=== PATIENT | female | born 1990 | race African-American/Black ===

== ENCOUNTER 2021-04-04 08:22 | Emergency (ER) | payer SELFPAY ==
[2021-04-04] MEDS ORDERED: Sterile Water 10 ML ONE (09:18)
[2021-04-04] MEDS ORDERED: Ziprasidone 20 MG VIAL ONE ×2 (09:18→11:44)
[2021-04-04 09:57] LABS: #Basophils 0.1 thou/uL (0.0-0.2); #Lymphocytes 1.2 thou/uL (1.20-3.40); #Monocytes 0.5 thou/uL (0.11-0.59); #Neutrophils 6.1 thou/uL (1.40-6.50); %Eosinophils 0.6 % (0.0-10.0); %Lymphocytes 14.9 % (21.0-51.0); %Monocytes 6.7 % (0.0-10.0); Hemoglobin 13.8 g/dL (12.0-16.0); Mean Corpuscular HGB CONC 33.2 g/dL (32.0-36.0); Mean Corpuscular Hemoglobin 29.6 pg (27.0-31.0); Mean Corpuscular Volume 89.3 fL (78.0-98.0); Mean Platelet Volume 7.3 fL (7.4-10.4); Platelet Count 203 thou/uL (130-400); RBC Distribution Width 11.6 % (11.5-14.5); Red Blood Cell (RBC) Count 4.64 mill/uL (4.20-5.40); White Blood Cell (WBC) Count 7.9 thou/uL (4.8-10.8)
[2021-04-04 10:10] LABS: Bilirubin Negative (Negative); Blood, Urine Negative (Negative); Clarity Clear (Clear); Glucose, Urine (Dipstick) Normal (Negative); Ketone, Urine Negative (Negative); Leukocyte Negative Leu/uL (Negative); Nitrite Negative (Negative); Protein, Urine (Dipstick) Negative (Neg-Trace); Specific Gravity, Urine 1.017 (1.002-1.036); Urobilinogen Normal mg/dL (Less than 2); pH, Urine 6.5 (5.0-9.0)
[2021-04-04 10:13] LABS: Acetaminophen Less than 6.0 mcg/mL (10.0-30.0); Alcohol Less than 10 mg/dL (Less than 10); Salicylate Less than 8.0 mg/dL (15.0-30.0)
[2021-04-04 10:13] LABS: Pregnancy Test - Urine (BHCG) Negative (Negative); Pregu Control Background? CLEAR/WHITE (CLR/WHITE); Pregu Control Bar Appear? YES (CONTROL BAR); Specific Gravity 1.017 (1.002-1.036)
[2021-04-04 10:15] LABS: ALT (SGPT) 16 U/L (8-55); AST (SGOT) 23 U/L (5-34); Albumin 4.2 g/dL (3.5-5.0); Alkaline Phosphatase 63 U/L (40-110); Anion Gap 13 mmol/L (10-20); BUN (Urea Nitrogen) 9 mg/dL (7.0-18.7); Bilirubin, Total 0.5 mg/dL (0.2-1.2); CK (CPK) 406 U/L (29-168); Calc. Creatinine Clearance 0 mL/min (70-130); Calcium 9.5 mg/dL (7.8-10.44); Carbon Dioxide 22 mmol/L (22-29); Chloride 107 mmol/L (98-107); Globulin 2.8 g/dL (2.4-3.5); Glucose 100 mg/dL (70-105); Potassium 3.2 mmol/L (3.5-5.1); Sodium 139 mmol/L (136-145)
[2021-04-04 10:41] LABS: Cocaine Metabolite Screen Detected (NotDetected); Methamphetamine Detected (NotDetected); Phencyclidine (PCP) Detected (NotDetected)
[2021-04-04 10:42] LABS: Amphetamine Detected (NotDetected); Barbiturates Screen Not Detected (NotDetected); Benzodiazepine Screen Not Detected (NotDetected); Medtox Control Line Valid? VALID (VALID); Medtox Reader # READER 1; Methadone Not Detected (NotDetected); Opiate Screen Not Detected (NotDetected); Oxycodone Screen Not Detected (NotDetected); THC/Cannabinoid Screen Not Detected (NotDetected); Tricyclic Screen Not Detected (NotDetected)
[2021-04-04] MEDS ORDERED: Lorazepam 1 MG TAB ONE (18:35)
[2021-04-04 19:36] LABS: SARS-CoV-2 NAA Rapid Test Not Detected (NotDetected)
== END 2021-04-04 19:45 ==
LOC: ERS 08:22
DX: F29 Unspecified psychosis not due to a substance or known physiological condition (principal); F19.10 Other psychoactive substance abuse, uncomplicated; Z20.822 Contact with and (suspected) exposure to COVID-19; F16.10 Hallucinogen abuse, uncomplicated; F14.10 Cocaine abuse, uncomplicated; F15.10 Other stimulant abuse, uncomplicated
CPT/HCPCS: 36415; 80053; 80306; 80307; 81003; 81025; 82550; 84443; 85025; 93005; 96372; 99285; J3486; U0002

== ENCOUNTER 2021-05-05 20:41 | Inpatient (IN) | payer OTHER, SELFPAY ==
[~2021-05-05 20:41] MED LIST: Iopamidol-370 76% 500 ML 1 ML ONE
[2021-05-05] MEDS ORDERED: Boostrix 0.5 ML (Tdap) VIAL ONE ×2 (20:46→21:21)
[2021-05-05 21:01] LABS: #Eosinphils 0.1 thou/uL (0.0-0.7); #Lymphocytes 1.3 thou/uL (1.20-3.40); #Monocytes 0.5 thou/uL (0.11-0.59); #Neutrophils 5.1 thou/uL (1.40-6.50); %Basophils 0.7 % (0.0-1.0); %Eosinophils 0.8 % (0.0-10.0); %Lymphocytes 19.1 % (21.0-51.0); %Monocytes 6.4 % (0.0-10.0); Hemoglobin 11.4 g/dL (12.0-16.0); Mean Corpuscular HGB CONC 34.4 g/dL (32.0-36.0); Mean Corpuscular Hemoglobin 30.5 pg (27.0-31.0); Mean Corpuscular Volume 88.9 fL (78.0-98.0); Mean Platelet Volume 6.8 fL (7.4-10.4); Platelet Count 199 thou/uL (130-400); RBC Distribution Width 12.2 % (11.5-14.5); Red Blood Cell (RBC) Count 3.73 mill/uL (4.20-5.40)
[2021-05-05] MEDS ORDERED: Tranexamic Acid 1,000 MG/10 ML VIAL ONE (21:12)
[2021-05-05 21:15] LABS: ALT (SGPT) 9 U/L (8-55); AST (SGOT) 16 U/L (5-34); Acetaminophen Less than 6.0 mcg/mL (10.0-30.0); Albumin 2.3 g/dL (3.5-5.0); Alcohol 16 mg/dL (Less than 10); Alkaline Phosphatase 28 U/L (40-110); Anion Gap 8 mmol/L (10-20); BUN (Urea Nitrogen) 9 mg/dL (7.0-18.7); Bilirubin, Total 0.3 mg/dL (0.2-1.2); Calc. Creatinine Clearance 0 mL/min (70-130); Carbon Dioxide 16 mmol/L (22-29); Chloride 122 mmol/L (98-107); Globulin 1.5 g/dL (2.4-3.5); Glucose 74 mg/dL (70-105); Protein, Total 3.8 g/dL (6.0-8.3); Salicylate Less than 8.0 mg/dL (15.0-30.0); Sodium 144 mmol/L (136-145)
[2021-05-05 21:18] LABS: Calcium 5.4 mg/dL (7.8-10.44); Potassium 1.9 mmol/L (3.5-5.1)
[2021-05-05 21:21] LABS: BHCG - Serum Negative (NEGATIVE); Pregs Control Background? CLEAR/WHITE (CLR/WHITE); Pregs Control Bar Appear? YES (CONTROL BAR)
[2021-05-05 21:22] LABS: INR-International Normal Ratio 1.2; PTT 26.7 sec (22.9-36.1); Prothrombin Time 15.4 sec (12.0-14.7)
[2021-05-05] MEDS ORDERED: Fentanyl 100 MCG/2 ML VIAL ONE ×2 (21:35→23:29)
[2021-05-05] MEDS ORDERED: Dextrose 5% in Water 1,000 ML IV PRN ×2 (21:52→22:01)
[2021-05-05] MEDS ORDERED: Morphine 2 MG/ML VIAL SLOW IVP PRN ×2 (21:52→22:01)
[2021-05-05] MEDS ORDERED: Dextrose 50% Abboject 50 ML SYRINGE SLOW IVP PRN ×2 (21:52→22:01)
[2021-05-05] MEDS ORDERED: Ondansetron PF 4 MG/2 ML Vial IVP PRN ×2 (21:52→23:45)
[2021-05-05] MEDS ORDERED: hydrALAZINE 20 MG/ML VIAL SLOW IVP PRN (21:52)
[2021-05-05] MEDS ORDERED: traMADol HCl 50 MG TAB PO PRN (21:54)
[2021-05-05] MEDS ORDERED: Ondansetron ODT 4 MG TAB PO PRN (22:01)
[2021-05-05] MEDS ORDERED: Morphine 4 MG/ML VIAL SLOW IVP PRN (22:01)
[2021-05-05] MEDS ORDERED: Lorazepam 2 MG/ML VIAL SLOW IVP PRN (22:01)
[2021-05-05] MEDS ORDERED: Ondansetron PF 4 MG/2 ML Vial ONE (22:02)
[2021-05-05] MEDS ORDERED: PHENYLEPHRINE-NS 100 MCG/ML 10 ML SYRINGE ONE (22:02)
[2021-05-05] MEDS ORDERED: Rocuronium Bromide 10 MG/ML (10ML VIAL) ONE (22:02)
[2021-05-05] MEDS ORDERED: PROPOFOL 200 MG/20 ML VIAL ONE (22:02)
[2021-05-05] MEDS ORDERED: Lidocaine 1% PF 5 ML VIAL ONE (22:02)
[2021-05-05] MEDS ORDERED: Succinylcholine 200 MG/10 ml SYRINGE FS ONE (22:02)
[2021-05-05] MEDS ORDERED: Dexamethasone 20 MG/5 ML VIAL ONE (22:02)
[2021-05-05] MEDS ORDERED: ePHEDrine Sulfate 50 MG/10 ML VIAL ONE (22:02)
[2021-05-05 22:06] LABS: Anion Gap 13 mmol/L (10-20); BUN (Urea Nitrogen) 13 mg/dL (7.0-18.7); Calc. Creatinine Clearance 0 mL/min (70-130); Calcium 8.6 mg/dL (7.8-10.44); Carbon Dioxide 23 mmol/L (22-29); Chloride 105 mmol/L (98-107); Glucose 89 mg/dL (70-105); Potassium 3.4 mmol/L (3.5-5.1); Sodium 138 mmol/L (136-145)
[2021-05-05] MEDS ORDERED: PACU-Morphine 4MG/ML VIAL SLOW IVP PRN (23:14)
[2021-05-05] MEDS ORDERED: Promethazine HCl 25 MG/ML VIAL IM PRN ×2 (23:14→23:45)
[2021-05-05] MEDS ORDERED: Ketorolac Tromethamine 30 MG/ML VIAL IVP PRN (23:14)
[2021-05-05] MEDS ORDERED: Morphine Sulfate 2 MG/ML SYRINGE SLOW IVP PRN (23:14)
[2021-05-05] MEDS ORDERED: HYDROmorphone 2 MG/ML VIAL SLOW IVP PRN (23:14)
[2021-05-05] MEDS ORDERED: Promethazine HCl 25 MG/ML VIAL SLOW IVP PRN (23:14)
[2021-05-05] MEDS ORDERED: Ondansetron HCl/PF 4 MG/2 ML Vial IVP PRN (23:14)
[2021-05-05] MEDS ORDERED: Meperidine HCl/PF 25 MG/ML VIAL SLOW IVP PRN ×2 (23:14)
[2021-05-05] MEDS ORDERED: Promethazine HCl 25 MG/ML VIAL ONE (23:37)
[2021-05-05] MEDS ORDERED: Zolpidem Tartrate 5 MG TAB PO PRN (23:45)
[2021-05-05] MEDS ORDERED: diphenhydrAMINE 25 MG CAP PO PRN (23:45)
[2021-05-05] MEDS ORDERED: Naloxone HCl 0.4 mg/ml Vial IV PRN (23:45)
[2021-05-05] MEDS ORDERED: diphenhydrAMINE 50 MG/ML VIAL IM/IV PRN (23:45)
[2021-05-05] MEDS ORDERED: Fentanyl CADD 100 ML IVPB SCH (23:59)
[2021-05-05] MEDS ORDERED: traMADol HCl 50 MG TAB PO SCH (23:59)
[2021-05-06] MEDS ORDERED: Fentanyl 100 MCG/2 ML VIAL ONE (00:01)
[2021-05-06] MEDS: Acetaminophen 325 MG TAB PO SCH ×4 (01:23→16:29)
[2021-05-06] MEDS: Potassium Chloride 20 MEQ in Lactated Ringer's 1,000 ML IV SCH ×2 (01:24→08:35)
[2021-05-06 01:50] VITALS: BMI 28.8
[2021-05-06 07:23] LABS: #Lymphocytes 0.6 thou/uL (1.20-3.40); #Monocytes 1.1 thou/uL (0.11-0.59); #Neutrophils 15.4 thou/uL (1.40-6.50); %Basophils 0.3 % (0.0-1.0); %Eosinophils 0.2 % (0.0-10.0); %Lymphocytes 3.4 % (21.0-51.0); %Monocytes 6.5 % (0.0-10.0); %Neutrophils 89.6 % (42.0-75.0); Hemoglobin 12.2 g/dL (12.0-16.0); Mean Corpuscular HGB CONC 34.2 g/dL (32.0-36.0); Mean Corpuscular Hemoglobin 30.5 pg (27.0-31.0); Mean Corpuscular Volume 89.1 fL (78.0-98.0); Mean Platelet Volume 7.2 fL (7.4-10.4); Platelet Count 200 thou/uL (130-400); RBC Distribution Width 12.2 % (11.5-14.5); White Blood Cell (WBC) Count 17.2 thou/uL (4.8-10.8)
[2021-05-06] MEDS ORDERED: Potassium Chloride 20 MEQ TAB PO SCH (07:30)
[2021-05-06 07:38] LABS: Phosphorus 3.5 mg/dL (2.3-4.7)
[2021-05-06 07:40] LABS: Anion Gap 13 mmol/L (10-20); BUN (Urea Nitrogen) 10 mg/dL (7.0-18.7); Calc. Creatinine Clearance 125 mL/min (70-130); Calcium 8.4 mg/dL (7.8-10.44); Carbon Dioxide 23 mmol/L (22-29); Chloride 106 mmol/L (98-107); Glucose 106 mg/dL (70-105); Magnesium 1.9 mg/dL (1.6-2.6); Potassium 4.2 mmol/L (3.5-5.1); Sodium 138 mmol/L (136-145)
[2021-05-06] MEDS: Famotidine/PF 20 mg/2ml Vial SLOW IVP SCH ×2 (08:35→20:18)
[2021-05-06] MEDS: Gabapentin 100 MG CAP PO SCH ×3 (08:35→20:18)
[2021-05-06] MEDS: Senokot S 8.6-50 MG TAB PO SCH ×2 (08:35→20:18)
[2021-05-06] MEDS: Polyethylene Glycol 3350 17 GM Packet PO SCH (08:35)
[2021-05-06] MEDS: Ketorolac Tromethamine 30 MG/ML VIAL IVP PRN ×2 (10:39→19:35)
[2021-05-06] MEDS: Albuterol Sulfate 2.5 mg/3 ml Neb NEB SCH (13:18)
[2021-05-06] MEDS: Divalproex Sodium 250 MG (DR) TAB PO SCH (20:17)
[2021-05-06] MEDS: Divalproex Sodium DR 500 MG TAB PO SCH (20:17)
[2021-05-06] MEDS: levETIRAcetam 500 MG TAB PO SCH (20:21)
[2021-05-06] MEDS ORDERED: Lisinopril 20 MG TAB PO SCH (21:00)
[2021-05-06] MEDS ORDERED: OLANZapine 5 MG TAB PO SCH (21:00)
[2021-05-06] MEDS ORDERED: traZODone HCl 50 MG TAB PO SCH (21:00)
[2021-05-07] MEDS: Acetaminophen 325 MG TAB PO SCH ×3 (00:52→06:33)
[2021-05-07 05:43] LABS: #Eosinphils 0.1 thou/uL (0.0-0.7); #Lymphocytes 1.7 thou/uL (1.20-3.40); #Monocytes 0.6 thou/uL (0.11-0.59); #Neutrophils 5.2 thou/uL (1.40-6.50); %Basophils 0.1 % (0.0-1.0); %Eosinophils 0.8 % (0.0-10.0); %Lymphocytes 22.4 % (21.0-51.0); %Monocytes 7.8 % (0.0-10.0); %Neutrophils 68.9 % (42.0-75.0); Hemoglobin 9.8 g/dL (12.0-16.0); Mean Corpuscular HGB CONC 33.5 g/dL (32.0-36.0); Mean Corpuscular Hemoglobin 30.3 pg (27.0-31.0); Mean Corpuscular Volume 90.4 fL (78.0-98.0); Platelet Count 173 thou/uL (130-400); RBC Distribution Width 12.3 % (11.5-14.5); Red Blood Cell (RBC) Count 3.24 mill/uL (4.20-5.40); White Blood Cell (WBC) Count 7.5 thou/uL (4.8-10.8)
[2021-05-07] MEDS: Albuterol Sulfate 2.5 mg/3 ml Neb NEB SCH (07:16)
[2021-05-07] MEDS ORDERED: Ferrous Sulfate 325 MG TAB PO SCH (08:00)
[2021-05-07] MEDS ORDERED: Ascorbic Acid 500 mg Chewable Tablet PO SCH (09:00)
[2021-05-07] MEDS ORDERED: Famotidine 20 MG TAB PO SCH (09:00)
[2021-05-07] MEDS: Gabapentin 100 MG CAP PO SCH (09:10)
[2021-05-07] MEDS: Polyethylene Glycol 3350 17 GM Packet PO SCH (09:11)
[2021-05-07] MEDS: Senokot S 8.6-50 MG TAB PO SCH (09:11)
[2021-05-07] MEDS: levETIRAcetam 500 MG TAB PO SCH (09:11)
[2021-05-07] MEDS: Divalproex Sodium 250 MG (DR) TAB PO SCH (10:05)
[2021-05-07] MEDS: Divalproex Sodium DR 500 MG TAB PO SCH (10:05)
[2021-05-07 12:07] VITALS: BP 109/71; TEMP 97.4
[2021-05-11] MEDS ORDERED: Ibuprofen 200 MG TAB PO SCH (06:00)
== END 2021-05-07 12:12 | disposition home or self-care (01) | DRG 356 ==
LOC: ERS 20:41 → SDC 21:49 → SURG A 21:52
PROVIDERS: ADMIT Specialist; ATTEND Specialist
PROC: 0WCG0ZZ Extirpation of Matter from Peritoneal Cavity, Open Approach (ICD-10-PCS; principal; 2021-05-05)
PROC: 0JQ80ZZ Repair Abdomen Subcutaneous Tissue and Fascia, Open Approach (ICD-10-PCS; 2021-05-05)
PROC: 0JQ70ZZ Repair Back Subcutaneous Tissue and Fascia, Open Approach (ICD-10-PCS; 2021-05-05)
PROC: 0JQ10ZZ Repair Face Subcutaneous Tissue and Fascia, Open Approach (ICD-10-PCS; 2021-05-05)
DX: S36.532A Laceration of descending [left] colon, initial encounter (principal); S31.619A Laceration without foreign body of abdominal wall, unspecified quadrant with penetration into peritoneal cavity, initial encounter; S01.81XA Laceration without foreign body of other part of head, initial encounter; S21.212A Laceration without foreign body of left back wall of thorax without penetration into thoracic cavity, initial encounter; W45.8XXA Other foreign body or object entering through skin, initial encounter
CPT/HCPCS: 36415; 70450; 71045; 71260; 74177; 80048; 80053; 80307; 82533; 82550; 83036; 83735; 84100; 84443; 84703; 85025; 85610; 85730; 86850; 86900; 86901; 90471; 90715; 94640; 96374; G0390; J0690; J1100; J1885; J2405; J2550; J2704; J3010; J3480; J7120; J7611; Q9967; S0028

== ENCOUNTER 2021-05-23 11:01 | Emergency (ER) | payer OTHER ==
[2021-05-23] MEDS ORDERED: Iopamidol-370 76% 500 ML 1 ML ONE (11:05)
[2021-05-23] MEDS ORDERED: Morphine 4 MG/ML VIAL ONE (11:47)
[2021-05-23] MEDS ORDERED: Ketorolac Tromethamine 30 MG/ML VIAL ONE (11:47)
[2021-05-23 12:04] LABS: #Eosinphils 0.1 thou/uL (0.0-0.7); #Lymphocytes 1.1 thou/uL (1.20-3.40); #Monocytes 0.5 thou/uL (0.11-0.59); %Basophils 0.2 % (0.0-1.0); %Eosinophils 1.1 % (0.0-10.0); %Lymphocytes 19.5 % (21.0-51.0); %Monocytes 9.4 % (0.0-10.0); %Neutrophils 69.9 % (42.0-75.0); Hemoglobin 10.5 g/dL (12.0-16.0); Mean Corpuscular HGB CONC 33.4 g/dL (32.0-36.0); Mean Corpuscular Hemoglobin 29.8 pg (27.0-31.0); Mean Corpuscular Volume 89.2 fL (78.0-98.0); Mean Platelet Volume 6.8 fL (7.4-10.4); Platelet Count 306 thou/uL (130-400); RBC Distribution Width 12.4 % (11.5-14.5); Red Blood Cell (RBC) Count 3.53 mill/uL (4.20-5.40); White Blood Cell (WBC) Count 5.7 thou/uL (4.8-10.8)
[2021-05-23 12:08] LABS: BHCG - Serum Negative (NEGATIVE); Pregs Control Background? CLEAR/WHITE (CLR/WHITE); Pregs Control Bar Appear? YES (CONTROL BAR)
[2021-05-23 12:31] LABS: ALT (SGPT) 10 U/L (8-55); AST (SGOT) 14 U/L (5-34); Albumin 3.4 g/dL (3.5-5.0); Alkaline Phosphatase 53 U/L (40-110); Anion Gap 13 mmol/L (10-20); BUN (Urea Nitrogen) 15 mg/dL (7.0-18.7); Bilirubin, Total 0.2 mg/dL (0.2-1.2); Calc. Creatinine Clearance 0 mL/min (70-130); Calcium 8.6 mg/dL (7.8-10.44); Carbon Dioxide 22 mmol/L (22-29); Chloride 108 mmol/L (98-107); Globulin 2.7 g/dL (2.4-3.5); Glucose 109 mg/dL (70-105); Lipase 41 U/L (8-78); Potassium 3.6 mmol/L (3.5-5.1); Protein, Total 6.1 g/dL (6.0-8.3); Sodium 139 mmol/L (136-145)
[2021-05-23] MEDS ORDERED: Midazolam HCl 2 mg/2 ml Vial ONE (14:06)
== END 2021-05-23 14:35 | disposition home or self-care (01) ==
LOC: ERS 11:01
DX: S31.61 Laceration without foreign body of abdominal wall with penetration into peritoneal cavity (principal); E03.9 Hypothyroidism, unspecified; I10 Essential (primary) hypertension; J45.909 Unspecified asthma, uncomplicated
CPT/HCPCS: 36415; 74177; 80053; 83605; 83690; 84703; 85025; 86850; 86900; 86901; 87040; 96374; 96375; J1885; J2250; J2270; Q9967